=== PATIENT | female | born 1990 | race Two or more races ===

== ENCOUNTER 2022-09-09 13:25 | Outpatient (CLI) | payer OTHER | END 2022-09-09 13:34 | disposition home or self-care (01) | LOC: RAD 13:25 | PROVIDERS: ATTEND General Practice | DX: R07.1 Chest pain on breathing (principal) ==

== ENCOUNTER 2022-11-14 12:01 | Outpatient (CLI) | payer OTHER | END 2022-11-14 12:11 | disposition home or self-care (01) | LOC: RAD 12:01 | PROVIDERS: ATTEND Specialist | DX: R06.2 Wheezing (principal); J45.31 Mild persistent asthma with (acute) exacerbation; J30.9 Allergic rhinitis, unspecified ==

== ENCOUNTER 2024-07-10 06:38 | Day surgery (SDC) | payer OTHER ==
[2024-07-05 12:09] LABS: HEMATOCRIT 41.4 % (36.0-45.00); HEMOGLOBIN 14.1 g/dL (12.0-15.00); MEAN CELL VOLUME 94.4 fL (80.00-100.00); MEAN CORPUSCULAR HEMOGLOBIN 32.2 pg (27.00-32.0); MEAN CORPUSCULAR HGB CONC 34.1 g/dl (32.0-36.0); PLATELET COUNT 269 K/uL (150-450); RED BLOOD COUNT 4.38 M/uL (4.00-6.00); RED CELL DISTRIBUTION WIDTH 13.2 % (11.5-14.5)
[2024-07-05 12:23] VITALS: BP 122/85
[2024-07-05 13:47] LABS: INR 1.05; PARTIAL THROMBOPLASTIN TIME 27.2 SECONDS (22.0-34.0); PROTHROMBIN TIME 11.4 SECONDS (9.0-11.5)
[2024-07-05 13:48] LABS: ALBUMIN 4.1 gm/dL (3.4-5.0); BILIRUBIN TOTAL 0.47 mg/dL (0.3-1.2); CALCIUM 9.7 mg/dL (8.5-10.1); CREATININE SERUM 0.86 mg/dL (0.55-1.02); GFR 75.99; GLOBULINA 3.7 G/DL (2.4-3.5); POTASSIUM 4.78 mEq/L (3.5-5.1); TOTAL PROTEIN 7.8 gm/dL (6.4-8.2)
[~2024-07-10] VITALS: Ht 167.6 cm; Wt 71.7 kg
[~2024-07-10 06:38] MED LIST: PROAIR RESPICL90 MCG IH
== END 2024-07-10 14:20 | disposition home or self-care (01) ==
LOC: CIR.AMB 06:38
PROVIDERS: ATTEND Obstetrics & Gynecology Maternal & Fetal Medicine
DX: N84.0 Polyp of corpus uteri (principal)

== ENCOUNTER 2025-01-27 13:21 | Inpatient (IN) | payer OTHER ==
[2025-01-27] MEDS ORDERED: MAGNESIUM SULFATE IN WATER 0.04 GM/ML IV.SOLN IV ONE (14:31)
[2025-01-27 17:55] LABS: ALBUMIN 2.9 gm/dL (3.4-5.0); BILIRUBIN TOTAL 0.22 mg/dL (0.3-1.2); CALCIUM 7.8 mg/dL (8.5-10.1); CREATININE SERUM 0.55 mg/dL (0.55-1.02); GFR 126.52; POTASSIUM 3.64 mEq/L (3.5-5.1); TOTAL PROTEIN 5.9 gm/dL (6.4-8.2)
[2025-01-27] MEDS ORDERED: RINGERS SOLUTION,LACTATED 1,000 ML IV SCH (18:00)
[2025-01-27] MEDS ORDERED: MAGNESIUM SULFATE IN WATER 500 ML IV SCH (18:00)
[2025-01-27 18:01] LABS: INR 0.97; PROTHROMBIN TIME 10.6 SECONDS (9.0-11.5)
[2025-01-27] MEDS ORDERED: PRENATAL TABLE1 EAC1 (19:26)
[2025-01-27 19:45] LABS: RED BLOOD COUNT 3.55 M/uL (3.93-5.22)
[2025-01-27 19:46] LABS: BASO % 0.2 % (0.1-1.2); EOS # 0.38 (0.04-0.54); EOS % 4.4 % (0.7-7.0); HEMATOCRIT 31.3 % (34.1-44.9); HEMOGLOBIN 10.7 g/dL (11.2-15.7); LYMPH # 1.87 (1.18-3.74); LYMPH % 21.7 % (19.3-53.1); MEAN CORPUSCULAR HEMOGLOBIN 30.1 pg (25.6-32.2); MONO # 0.51 (0.24-0.82); MONO % 5.9 % (4.7-12.5); NEUT # 5.82 (1.56-6.13); NEUT % 67.5 % (34.0-71.1); PLATELET COUNT 273 K/uL (163-369)
[2025-01-27 23:44] VITALS: BP 116/68
[2025-01-28 04:00] VITALS: BP 106/65; BP 94/57
[2025-01-28] MEDS ORDERED: MAGNESIUM SULFATE IN WATER 0.04 GM/ML IV.SOLN IV ONE (04:00)
[2025-01-28 06:24] VITALS: BP 115/70; O2SAT 99
[2025-01-28 11:11] VITALS: BP 102/63
[2025-01-28] MEDS ORDERED: POVIDONE-IODINE 118 ML BOTT TOP ONE (12:07)
[2025-01-28] MEDS ORDERED: MORPHINE SULFATE 4 MG/ML CARTRIDGE IV PRN (13:30)
[2025-01-28 17:15] VITALS: BP 117/65
== END 2025-01-28 19:27 | disposition home or self-care (01) | DRG 819 ==
LOC: LDR 13:21
PROVIDERS: ADMIT Obstetrics & Gynecology; ATTEND Obstetrics & Gynecology
PROC: 4A1HXCZ Monitoring of Products of Conception, Cardiac Rate, External Approach (ICD-10-PCS; 2025-01-27)
PROC: 0UVC7ZZ Restriction of Cervix, Via Natural or Artificial Opening (ICD-10-PCS; principal; 2025-01-28 12:15)
DX: O34.32 Maternal care for cervical incompetence, second trimester (principal); Z3A.22 22 weeks gestation of pregnancy